=== PATIENT | male | born 1945 | race Caucasian/White ===

== ENCOUNTER 2021-09-07 00:37 | Emergency (ER) | payer OTHER ==
[~2021-09-07] VITALS: Ht 185.4 cm; Wt 81.7 kg
[2021-09-07] MEDS ORDERED: BASAGLAR K100 UNIT/5 SC (02:06)
[2021-09-07] MEDS ORDERED: INSULIN AS100 UNIT/6 SC ×2 (02:07)
[2021-09-07] MEDS ORDERED: METF500 PO (02:07)
[2021-09-07] MEDS ORDERED: [UNRECOGNIZED DRUG - OTHER] PO (02:08)
[2021-09-07] MEDS ORDERED: LYRICA75 M1 PO (02:08)
[2021-09-07] MEDS ORDERED: TADALAFIL5 M1 PO (02:09)
[2021-09-07] MEDS ORDERED: LISI20 PO (02:10)
[2021-09-07] MEDS ORDERED: AMLO5 PO (02:10)
[2021-09-07] MEDS ORDERED: TOPROL XL25 MG PO (02:10)
[2021-09-07] MEDS ORDERED: CHLO25B PO (02:11)
[2021-09-07] MEDS ORDERED: OMEP20ER PO (02:11)
[2021-09-07] MEDS ORDERED: ZOCOR20 MG PO (02:11)
[2021-09-07] MEDS ORDERED: POTCIT10 PO (02:12)
[2021-09-07] MEDS ORDERED: VENL150ER PO (02:12)
[2021-09-07] MEDS ORDERED: Flomax0.4 MG PO (02:13)
== END 2021-09-07 03:15 | disposition home or self-care (01) ==
LOC: ER 00:37
DX: T38.3X1A Poisoning by insulin and oral hypoglycemic [antidiabetic] drugs, accidental (unintentional), initial encounter (principal); E11.9 Type 2 diabetes mellitus without complications; E87.6 Hypokalemia; Z79.4 Long term (current) use of insulin; Z79.84 Long term (current) use of oral hypoglycemic drugs; Z79.899 Other long term (current) drug therapy
CPT/HCPCS: 36415; 82947; 99284; A9270

== ENCOUNTER 2022-04-27 01:02 | Emergency (ER) | payer OTHER ==
[~2022-04-27] VITALS: Ht 182.9 cm; Wt 83.5 kg
[~2022-04-27 01:02] MED LIST: AMLO5 PO; BASAGLAR K100 UNIT/5 SC; CHLO25B PO; Flomax0.4 MG PO; INSULIN AS100 UNIT/6 SC; LISI20 PO; LYRICA75 M1 PO; METF500 PO; OMEP20ER PO; POTCIT10 PO; TADALAFIL5 M1 PO; TOPROL XL25 MG PO; VENL150ER PO; ZOCOR20 MG PO; [UNRECOGNIZED DRUG - OTHER] PO
[2022-04-27 01:41] LABS: Bun/Creatinine Ratio 21.9 (12.0-20.0); Calcium, Blood 8.8 mg/dL (8.5-10.1); Creatinine, Blood 0.87 mg/dL (0.60-1.20); Potassium, Blood 3.8 mmol/L (3.5-5.5)
[2022-04-27 01:49] LABS: BASOPHILS ABSOLUTE AUTO 0.03 K/mm3 (0.00-0.23); BASOPHILS PERCENT AUTO 0 % (0-2); EOSINOPHILS ABSOLUTE AUTO 0.11 K/mm3 (0.00-0.68); EOSINOPHILS PERCENT AUTO 2 % (0-6); Hematocrit 46.1 % (37.0-53.0); Hemoglobin 15.9 g/dL (13.5-17.5); IMMATURE GRAN ABSOLUTE AUTO 0.02 K/mm3 (0.00-0.10); IMMATURE GRAN PERCENT AUTO 0 % (0-1); LYMPHOCYTES ABSOLUTE AUTO 1.78 K/mm3 (0.84-5.20); LYMPHOCYTES PERCENT AUTO 25 % (21-46); MONOCYTES ABSOLUTE AUTO 0.71 K/mm3 (0.16-1.47); MONOCYTES PERCENT AUTO 10 % (4-13); Mean Corpuscular HGB 31.4 pg (26.0-34.0); Mean Corpuscular HGB Conc 34.5 g/dL (31.5-36.5); Mean Corpuscular Volume 91 fL (80-100); NEUTROPHILS ABSOLUTE AUTO 4.63 K/mm3 (1.96-9.15); NEUTROPHILS PERCENT AUTO 64 % (41-73); Platelet Count 114 K/mm3 (150-400); RDW Coefficient Variation 13.1 % (11.7-14.2); RDW Standard Deviation 43.3 fL (35.1-46.3); Red Blood Cell Count 5.07 M/mm3 (4.30-5.90); White Blood Cell Count 7.28 K/mm3 (4.00-11.30)
== END 2022-04-27 05:09 | disposition home or self-care (01) ==
LOC: ER 01:02
PROVIDERS: Student in an Organized Health Care Education/Training Program
DX: R07.81 Pleurodynia (principal); M79.631 Pain in right forearm; M54.9 Dorsalgia, unspecified; E11.9 Type 2 diabetes mellitus without complications; W11.XXXA Fall on and from ladder, initial encounter; Z79.4 Long term (current) use of insulin; Z79.899 Other long term (current) drug therapy; Z79.84 Long term (current) use of oral hypoglycemic drugs
CPT/HCPCS: 73090; 74176; 80048; 85025; 96374; 99284-25; J3010